=== PATIENT | male | born 1975 | race Caucasian/White ===

== ENCOUNTER 2020-04-23 08:05 | Outpatient (CLI) | payer BC ==
--- NOTE | 2020-04-23 09:14 | MRI ---
MRI UPPER EXTREMITY JOINT LEFT WITHOUT CONTRAST: History: Complex tear of the triangular fibrocartilage. Comparison: Wrist radiographs April 18, 2020. Findings: Bones: Mild elongation of the ulnar styloid process. Subcortical cyst formation along the medial and palmar aspect of the lunate with subtle widening of the palmar aspect of the scapholunate interval. No acute fracture or malalignment. Soft tissues: Small distal radioulnar joint effusion with low-grade synovitis. Low-grade synovitis wi thin the prestyloid recess. Partial tear of the radial scaphocapitate and long radiolunate ligaments at the radial and scaphoid a ttachments. The radioscaphoid ligament appears to be intact. At the palmar region of interest marker is the palmaris longus tendon. At the medial wrist region of interest marker is the ulnar styloid process. Along the volar aspect of the radioscaphoid articulation is an 8 mm x 3 mm x 13 mm ganglion pseudocys t. Triangular fibrocartilage: Mild degenerative fraying central articular disc with an incomplete tear. The dorsal and volar distal radioulnar ligaments are intact. Meniscal homologue is intact. The foveal and styloid insertions are intact. Tendons: Normal location of the extensor carpi ulnaris. No tear. No subluxation. Extensor tendons are intact. Flexor tendons are intact. Muscles: Muscle signal and bulk is normal. Impression: 1. At the volar region images marker is the palmaris longus tendon, a normal variant. 2. At the medial wrist region of interest marker is ulnar styloid process and triangular fibrocartila ge for which a central articular disc has an incomplete tear and mild fraying. Normal radial, foveal, and styloid insertions as well as intact dorsal and volar distal radioulnar ligaments. 3. Partial tear volar aspect scapholunate ligament along with partial tears of the volar extrinsic li gaments including the radioscaphocapitate and long radiolunate ligaments to the radial styloid origin for which a small 8 x 3 x 13 mm ganglion pseudocyst extends into the volar soft tissues throug h the defect in the extrinsic ligaments. 4. No significant tenosynovitis. Intact extensor carpi ulnaris without subluxation. Intact soft tissu es. 5. Small subcortical cysts along the medial aspect proximal pole of the scaphoid volarly from scaphol unate ligament insufficiency and micromotion. Transcribed Date/Time: 04/23/2020 9:45 AM
== END 2020-04-23 08:06 | disposition home or self-care (01) ==
LOC: TBSIIMAG 08:05
PROVIDERS: ATTEND Orthopaedic Surgery Hand Surgery
DX: S63.592A Other specified sprain of left wrist, initial encounter (principal)

== ENCOUNTER 2020-04-26 08:13 | Outpatient (CLI) | payer BC ==
--- NOTE | 2020-04-26 09:14 | ULT ---
Abdominal ultrasound: 04/26/2020 COMPARISON: None HISTORY: Evaluate the liver and spleen, alcohol use TECHNIQUE: Multiplanar grayscale sonographic imaging of the abdomen provided. FINDINGS: Imaged portions of the pancreas, abdominal aorta, and IVC appear grossly unremarkable. The right kidney measures 12.7 cm in craniocaudal dimension and demonstrates no evidence for stone, h ydronephrosis, or mass lesion. No gallbladder wall thickening is noted. The common bile duct measures approximately 6 mm in transverse dimension, upper limits of normal. Left kidney measures 13 cm in craniocaudal dimension and demonstrates no stone, hydronephrosis, or ma ss. The spleen appears enlarged, measuring up to approximately 16 cm. The corset maker reports a negative Suero's sign. No focal liver lesion is evident. The hepatic parenchyma is mildly echogenic which may signify a degr ee of hepatocellular disease, such as hepatic steatosis. IMPRESSION: Increased echogenicity of the hepatic parenchyma. Splenomegaly.
== END 2020-04-26 08:14 | disposition home or self-care (01) ==
LOC: BICULT 08:13
PROVIDERS: ATTEND Internal Medicine Hematology & Oncology
DX: R16.1 Splenomegaly, not elsewhere classified (principal); F33.9 Major depressive disorder, recurrent, unspecified; K76.89 Other specified diseases of liver
CPT/HCPCS: 93975

== ENCOUNTER 2020-05-30 14:05 | Outpatient (CLI) | payer BC | END 2020-05-30 14:06 | disposition home or self-care (01) | LOC: LABBT 14:05 | PROVIDERS: ATTEND Orthopaedic Surgery Hand Surgery | DX: Z01.818 Encounter for other preprocedural examination (principal); S63.502A Unspecified sprain of left wrist, initial encounter; G56.01 Carpal tunnel syndrome, right upper limb; M67.432 Ganglion, left wrist; Z20.822 Contact with and (suspected) exposure to COVID-19 | CPT/HCPCS: 85025; 87635; 93005; 93010; U0003; U0005 ==

== ENCOUNTER 2020-06-04 06:56 | Day surgery (SDC) | payer BC ==
[2020-06-03 11:15] VITALS: BMI 34.0
[2020-06-04] MEDS ORDERED: Lidocaine 1% (PF) 30 ML VIAL ONE (07:45)
[2020-06-04] MEDS ORDERED: Midazolam HCl 2 mg/2 ml Vial ONE (07:45)
[2020-06-04] MEDS ORDERED: Fentanyl 100 MCG/2 ML VIAL ONE ×2 (07:45→10:06)
[2020-06-04] MEDS ORDERED: Bupivacaine HCl 0.5%/Epinephrine 1:200,000/PF 30 ml Vial ONE (08:10)
[2020-06-04] MEDS ORDERED: EPINEPHrine 1 MG/ML AMP ONE (10:16)
[2020-06-04] MEDS ORDERED: Bacitracin Zinc Ointment 30 gm TUBE ONE (10:16)
[2020-06-04] MEDS ORDERED: Bupivacaine PF 0.5% 30 ML VIAL ONE (10:16)
[2020-06-04] MEDS ORDERED: Betamet Acet/Betamet Na Ph 30 MG/5 ML VIAL ONE (10:16)
[2020-06-04] MEDS ORDERED: Sodium Chloride 0.9% 10 ML ONE (10:17)
[2020-06-04] MEDS ORDERED: PHENYLEPHRINE-NS 100 MCG/ML 10 ML SYRINGE ONE (12:47)
[2020-06-04] MEDS ORDERED: Dexamethasone 20 MG/5 ML VIAL ONE (12:47)
[2020-06-04] MEDS ORDERED: ePHEDrine 50 MG/ML VIAL ONE (12:47)
[2020-06-04] MEDS ORDERED: PROPOFOL 200 MG/20 ML VIAL ONE (12:47)
[2020-06-04] MEDS ORDERED: Ondansetron PF 4 MG/2 ML Vial ONE ×2 (12:47→17:30)
[2020-06-04] MEDS ORDERED: Lidocaine 1% PF 5 ML VIAL ONE (12:47)
[2020-06-04] MEDS ORDERED: Phenylephrine 10 MG/ML VIAL ONE (12:58)
[2020-06-04] MEDS ORDERED: HYDROcodone/Acetaminophen 5/325 mg Tablet ONE (17:28)
[2020-06-04] MEDS ORDERED: Ketorolac Tromethamine 30 MG/ML VIAL ONE (18:03)
== END 2020-06-04 19:28 | disposition home or self-care (01) ==
LOC: SDC 06:56
PROVIDERS: ATTEND Orthopaedic Surgery Hand Surgery
PROC: 01N50ZZ Release Median Nerve, Open Approach (ICD-10-PCS; principal; 2020-06-04)
PROC: 0LB60ZZ Excision of Left Lower Arm and Wrist Tendon, Open Approach (ICD-10-PCS; principal; 2020-06-04)
PROC: 0PHL04Z Insertion of Internal Fixation Device into Left Ulna, Open Approach (ICD-10-PCS; principal; 2020-06-04)
PROC: 0MQ64ZZ Repair Left Wrist Bursa and Ligament, Percutaneous Endoscopic Approach (ICD-10-PCS; principal; 2020-06-04)
PROC: 0PBL0ZZ Excision of Left Ulna, Open Approach (ICD-10-PCS; principal; 2020-06-04)
DX: S63.592A Other specified sprain of left wrist, initial encounter (principal); G56.02 Carpal tunnel syndrome, left upper limb; M25.839 Other specified joint disorders, unspecified wrist; M67.432 Ganglion, left wrist; F17.220 Nicotine dependence, chewing tobacco, uncomplicated; F17.290 Nicotine dependence, other tobacco product, uncomplicated; I10 Essential (primary) hypertension; G47.33 Obstructive sleep apnea (adult) (pediatric); E78.00 Pure hypercholesterolemia, unspecified; N52.9 Male erectile dysfunction, unspecified; Z79.899 Other long term (current) drug therapy
CPT/HCPCS: 76000; 88304; C1713; J0171; J0690; J0702; J1100; J1885; J2001; J2250; J2370; J2405; J2704; J3010; J3490; S0020

== ENCOUNTER 2021-05-06 11:29 | Outpatient (CLI) | payer BC | END 2021-05-06 11:30 | disposition home or self-care (01) | LOC: SCSMRI 11:29 | PROVIDERS: ATTEND Orthopaedic Surgery | DX: M23.91 Unspecified internal derangement of right knee (principal); S83.014A Lateral dislocation of right patella, initial encounter; S80.01XA Contusion of right knee, initial encounter; S83.241A Other tear of medial meniscus, current injury, right knee, initial encounter | CPT/HCPCS: 70210 ==

== ENCOUNTER 2023-12-07 09:04 | Outpatient (CLI) | payer BC | END 2023-12-07 09:05 | disposition home or self-care (01) | LOC: ULT 09:04 | PROVIDERS: ATTEND Nurse Practitioner Family | DX: R74.8 Abnormal levels of other serum enzymes (principal); K76.89 Other specified diseases of liver | CPT/HCPCS: 76705 ==

== ENCOUNTER 2023-12-30 10:38 | Outpatient (CLI) | payer BC | END 2023-12-30 10:39 | disposition home or self-care (01) | LOC: MRI 10:38 | PROVIDERS: ATTEND Physician Assistant Medical | DX: R79.89 Other specified abnormal findings of blood chemistry (principal); R93.2 Abnormal findings on diagnostic imaging of liver and biliary tract; R16.1 Splenomegaly, not elsewhere classified | CPT/HCPCS: 74183; 76376 ==